=== PATIENT | female | born 1985 | race Caucasian/White ===

== ENCOUNTER 2024-03-03 15:37 | Emergency (ER) | payer OTHER ==
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
--- NOTE | 2024-03-03 16:43 | RAD REPORT ---
Procedure: Chest Pa And Lat (2 Views) HISTORY: cough COMPARISON: none FINDINGS: The lungs appear clear of acute infiltrate. No significant pleural effusion noted. The heart is normal size. IMPRESSION: No acute abnormality is displayed.
[2024-03-03] MEDS ORDERED: AZITHROMYCIN 250 MG TAB ONE (16:54)
[2024-03-03 17:11] LABS: SARS-CoV-2 Antigen CONTROL BLUE LINE VIS/BG OK; SARS-CoV-2 Antigen Rapid Res Negative (Negative)
--- NOTE | 2024-03-03 17:22 | ER ---
Nurse's Notes [facility] Name: Jimmy Leavitt Age: 38 yrs Sex: Female : 1985 Arrival Date: 03/03/2024 Time: 15:37 Bed 10 Private MD: Diagnosis: Acute pharyngitis, unspecified;Cough;Tobacco abuse counseling;Tobacco use Presentation: 03/03 15:49 Chief complaint: Patient states: sore throat and cough since yesterday. worse today kc6 with hoarseness. Coronavirus screen: At this time, the client does not indicate any symptoms associated with coronavirus-19. Ebola Screen: No symptoms or risks identified at this time. Initial Sepsis Screen: Does the patient meet any 2 criteria? No. Patient's initial sepsis screen is negative. Does the patient have a suspected source of infection? No. Patient's initial sepsis screen is negative. Risk Assessment: Do you want to hurt yourself or someone else? Patient reports no desire to harm self or others. Onset of symptoms was March 03, 2024. 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 - Infectious Disease History:: Denies. - Social history:: Smoking status: Reported history of juuling and/or vaping. Screenin:00 [facility] ED Fall Risk Assessment (Adult) History of falling in the last 3 months, aa5 including since admission No falls in past 3 months (0 pts) Confusion or Disorientation No (0 pts) Intoxicated or Sedated No (0 pts) Impaired Gait No (0 pts) Mobility Assist Device Used No (0 pt) Altered Elimination No (0 pt) Score/Fall Risk Level 0 - 2 = Low Risk Oriented to surroundings, Maintained a safe environment, Educated pt \T\ family on fall prevention, incl call for assistance when getting out of bed. Abuse screen: Denies threats or abuse. Nutritional screening: No deficits noted. Tuberculosis screening: No symptoms or risk factors identified. Assessment: 17:00 General: Appears comfortable, Behavior is calm, cooperative. Pain: Complains of pain in aa5 sore throat. Neuro: Level of Consciousness is awake, alert, obeys commands, Oriented to person, place, time, situation. Cardiovascular: Patient's skin is warm and dry. Respiratory: Reports cough Airway is patent Respiratory effort is even, unlabored, Respiratory pattern is regular, symmetrical. GI: No signs and/or symptoms were reported involving the gastrointestinal system. : No signs and/or symptoms were reported regarding the genitourinary system. EENT: Reports sore throat, hoarse voice noted. . Derm: Skin is pink, warm \T\ dry. Musculoskeletal: Range of motion: intact in all extremities. 17:55 Reassessment: Patient is alert, oriented x 3, equal unlabored respirations, skin aa5 warm/dry/pink. Vital Signs: 15:49 BP 117 / 83; Pulse 87; Resp 16 S; Temp 98.6(O); Pulse Ox 96% on R/A; Weight 61.69 kg kc6 (R); Height 5 ft. 7 in. (R); 15:49 Body Mass Index 21.30 (61.69 kg, 170.18 cm) [facility] ED Course: 15:44 Patient arrived in ED. mr 15:48 Al Majano MD is Attending Physician. [facility] 15:51 Triage completed. [facility] 15:52 Arm band placed on. kc6 16:21 Chest Pa And Lat (2 Views) XRAY In Process Unspecified. EDMS 16:39 Penny Michael, RN is Primary Nurse. aa5 16:46 SARS RAPID Sent. nh2 16:46 Flu Sent. nh2 16:46 Strep Sent. nh2 17:00 Patient has correct armband on for positive identification. Call light in reach. aa5 17:55 No provider procedures requiring assistance completed. Patient did not have IV access aa5 during this emergency room visit. Administered Medications: 17:00 Drug: AZITHromycin PO 500 mg PO once Route: PO; aa5 17:55 Follow up: Response: No adverse reaction aa5 Medication: 17:55 VIS not applicable for this client. aa5 Outcome: 17:21 Discharge ordered by . [facility] 17:55 Discharged to home ambulatory, aa5 17:55 Condition: stable 17:55 Discharge instructions given to patient, Instructed on discharge instructions, follow up and referral plans. medication usage, Demonstrated understanding of instructions, follow-up care, medications, Prescriptions given X 2, 17:56 Patient left the ED. aa5 Signatures: Dispatcher [employer] EDAl Brizuela MD MD cha Rivera, Louise, Reg Reg mr MichaelPenny RN RN aa5 Jenna Delarosa RN RN kc6 [facility]
--- NOTE | 2024-03-03 17:22 | EDPHYS ---
Physician Documentation [facility] Name: Jimmy Leavitt Age: 38 yrs Sex: Female : 1985 Arrival Date: 03/03/2024 Time: 15:37 Bed 10 Private MD: REYES Physician Al Majano HPI: 03/03 17:13 This 38 yrs old Female presents to ER via Ambulatory with complaints of Sore gordo Throat, Cough. 17:13 The patient presents with sore throat. The patient describes throat pain as constant, gordo raw. Onset: The symptoms/episode began/occurred 3 day(s) ago. Severity of symptoms: At their worst the symptoms were mild, in the emergency department the symptoms are unchanged. Modifying factors: The symptoms are alleviated by nothing, the symptoms are aggravated by nothing. Associated signs and symptoms: The patient has no apparent associated signs or symptoms. The patient has experienced similar episodes in the past, a few times. 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 - Infectious Disease History:: Denies. - Social history:: Smoking status: Reported history of juuling and/or vaping. ROS: 17:14 Constitutional: Negative for fever, chills, and weight loss, Eyes: Negative for injury, gordo pain, redness, and discharge, Neck: Negative for injury, pain, and swelling, Cardiovascular: Negative for chest pain, palpitations, and edema, Respiratory: Negative for shortness of breath, cough, wheezing, and pleuritic chest pain, Abdomen/GI: Negative for abdominal pain, nausea, vomiting, diarrhea, and constipation, Back: Negative for injury and pain, : Negative for injury, bleeding, discharge, and swelling, MS/Extremity: Negative for injury and deformity, Skin: Negative for injury, rash, and discoloration, Neuro: Negative for headache, weakness, numbness, tingling, and seizure, Psych: Negative for depression, anxiety, suicide ideation, homicidal ideation, and hallucinations, Allergy/Immunology: Negative for hives, rash, and allergies, Endocrine: Negative for neck swelling, polydipsia, polyuria, polyphagia, and marked weight changes, Hematologic/Lymphatic: Negative for swollen nodes, abnormal bleeding, and unusual bruising, 17:14 ENT: Positive for sinus congestion, sore throat, Exam: 17:14 Constitutional: This is a well developed, well nourished patient who is awake, alert, gordo and in no acute distress. Head/Face: Normocephalic, atraumatic. Eyes: Pupils equal round and reactive to light, extra-ocular motions intact. Lids and lashes normal. Conjunctiva and sclera are non-icteric and not injected. Cornea within normal limits. Periorbital areas with no swelling, redness, or edema. ENT: Nares patent. No nasal discharge, no septal abnormalities noted. Tympanic membranes are normal and external auditory canals are clear. Oropharynx with no redness, swelling, or masses, exudates, or evidence of obstruction, uvula midline. Mucous membranes moist. Neck: Trachea midline, no thyromegaly or masses palpated, and no cervical lymphadenopathy. Supple, full range of motion without nuchal rigidity, or vertebral point tenderness. No Meningismus. Chest/axilla: Normal chest wall appearance and motion. Nontender with no deformity. No lesions are appreciated. Cardiovascular: Regular rate and rhythm with a normal S1 and S2. No gallops, murmurs, or rubs. Normal PMI, no JVD. No pulse deficits. Respiratory: Lungs have equal breath sounds bilaterally, clear to auscultation and percussion. No rales, rhonchi or wheezes noted. No increased work of breathing, no retractions or nasal flaring. Abdomen/GI: Soft, non-tender, with normal bowel sounds. No distension or tympany. No guarding or rebound. No evidence of tenderness throughout. Back: No spinal tenderness. No costovertebral tenderness. Full range of motion. Skin: Warm, dry with normal turgor. Normal color with no rashes, no lesions, and no evidence of cellulitis. MS/ Extremity: Pulses equal, no cyanosis. Neurovascular intact. Full, normal range of motion. Neuro: Awake and alert, GCS 15, oriented to person, place, time, and situation. Cranial nerves II-XII grossly intact. Motor strength 5/5 in all extremities. Sensory grossly intact. Cerebellar exam normal. Normal gait. Psych: Awake, alert, with orientation to person, place and time. Behavior, mood, and affect are within normal limits. Vital Signs: 15:49 BP 117 / 83; Pulse 87; Resp 16 S; Temp 98.6(O); Pulse Ox 96% on R/A; Weight 61.69 kg kc6 (R); Height 5 ft. 7 in. (R); 15:49 Body Mass Index 21.30 (61.69 kg, 170.18 cm) kc6 MDM: 15:48 Medical Screening Exam initiated [facility] 03/03 15:49 Order name: Strep [facility] 03/03 15:49 Order name: Flu; Complete Time: 17:13 [facility] 03/03 15:49 Order name: SARS RAPID; Complete Time: 17:13 [facility] 03/03 17:01 Order name: Throat Culture [facility] 03/03 15:49 Order name: Chest Pa And Lat (2 Views) XRAY; Complete Time: 17:00 [facility] Administered Medications: 17:00 Drug: AZITHromycin PO 500 mg PO once Route: PO; aa5 17:55 Follow up: Response: No adverse reaction aa5 Disposition Summary: 03/03/24 17:21 Discharge Ordered Notes: Location: Home [facility] Problem: new [facility] Symptoms: have improved [facility] Condition: Stable gordo Diagnosis - Acute pharyngitis, unspecified gordo - Cough gordo - Tobacco abuse counseling gordo - Tobacco use gordo Followup: gordo - With: Private Physician - When: 2 - 3 days - Reason: Recheck today's complaints, Continuance of care, Re-evaluation by your physician Discharge Instructions: - Discharge Summary Sheet gordo - Pharyngitis gordo - Steps to Quit Smoking gordo - Health Risks of Smoking gordo - Sore Throat gordo - Upper Respiratory Infection, Adult gordo - Cool Mist Vaporizer gordo - Upper Respiratory Infection, Adult, [id number] gordo - Pharyngitis, [id number]-[id number] gordo - Cough, Adult, [id number] [facility] Forms: - Medication Reconciliation Form gordo - Antibiotic Education gordo - Prescription Opioid Use gordo - Patient Portal Instructions [facility] - Leadership Thank You Letter [facility] Prescriptions: - Tessalon Perles 100 mg Oral capsule - take 2 capsule ORAL route every 8 hours As needed; 30 capsule; Refills: 0, gordo Product Selection Permitted - Zithromax 500 mg Oral tablet - take 1 tablet ORAL route once daily for 4 days begin 03/04/24; 4 tablet; gordo Refills: 0, Product Selection Permitted Signatures: Dispatcher [employer] EDAl Brizuela MD MD cha Calderon, Audri, RN RN aa5 Jenna Delarosa RN RN kc6 Corrections: (The following items were deleted from the chart) 15:49 15:49 Group A Streptococcus Rapid Sc+BA.LAB.BRZ ordered. EDMS EDMS 15:49 15:49 Influenza Screen (A \T\ B)+BA.LAB.BRZ ordered. EDMS EDMS 15:49 15:49 SARS-COV-2 Antigen Rapid+I.LAB.BRZ ordered. EDMS EDMS 15:49 15:49 Chest Pa And Lat (2 Views)+RAD.RAD.BRZ ordered. EDMS EDMS
[2024-03-04 04:25] VITALS: BP 117/83; TEMP 98.6; O2SAT 96
== END 2024-03-03 17:56 | disposition home or self-care (01) ==
LOC: ER 15:37
DX: J02.9 Acute pharyngitis, unspecified (principal); R05.9 Cough, unspecified; Z71.6 Tobacco abuse counseling; Z72.0 Tobacco use; Z11.52 Encounter for screening for COVID-19
CPT/HCPCS: 36415; 71046; 87070; 87081; 87804; 87811; 99283

== ENCOUNTER 2024-03-18 15:48 | Emergency (ER) | payer OTHER ==
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
[2024-03-18 16:30] LABS: Specific Gravity 1.005 (1.005-1.030); Sqamous Epithelial <5 /HPF (None Seen); Urine Bacteria <20 /HPF (<20); Urine Bilirubin NEGATIVE (Negative); Urine Blood Negative (Negative); Urine Clarity Turbid (Clear); Urine Color Colorless (Yellow); Urine Culture Reflex Order NOT NEEDED; Urine Glucose NEGATIVE (Negative); Urine Ketones NEGATIVE (Negative); Urine Microscopic Reflex YN ORDER UMIC; Urine Nitrite NEGATIVE (Negative); Urine Protein NEGATIVE (Negative); Urine RBC <5 /HPF (None Seen); Urine Urobilinogen Normal (Normal); Urine WBC <5 /HPF (<5); Urine pH 6.5 (5.0-7.0)
[2024-03-18 16:31] LABS: Specific Gravity 1.005 (1.005-1.030)
--- NOTE | 2024-03-18 17:34 | ER ---
Nurse's Notes [facility] Name: Jimmy Leavitt Age: 38 yrs Sex: Female : 1985 Arrival Date: 03/18/2024 Time: 15:48 Bed IW2 Private MD: Diagnosis: UTI/ Urinary tract infection, site not specified Presentation: 03/18 16:00 Chief complaint: Patient states: Pt c/o right lower back pain, dysuria, frequency and tl4 urgency x 3 days. Coronavirus screen: At this time, the client does not indicate any symptoms associated with coronavirus-19. Ebola Screen: No symptoms or risks identified at this time. Initial Sepsis Screen: Does the patient meet any 2 criteria? No. Patient's initial sepsis screen is negative. Does the patient have a suspected source of infection? No. Patient's initial sepsis screen is negative. Risk Assessment: Do you want to hurt yourself or someone else? Patient reports no desire to harm self or others. Onset of symptoms was March 15, 2024. 16:00 Method Of Arrival: Ambulatory tl4 16:00 Acuity: ELVIRA 3 tl4 Triage Assessment: 16:03 General: Appears in no apparent distress. Behavior is calm, cooperative. Pain: tl4 Complains of pain in back. EENT: No signs and/or symptoms were reported regarding the EENT system. Neuro: Level of Consciousness is awake, alert, obeys commands, Oriented to person, place, time, situation. Cardiovascular: Capillary refill < 3 seconds Patient's skin is warm and dry. Respiratory: Airway is patent Respiratory effort is even, unlabored, Respiratory pattern is regular, symmetrical. GI: No signs and/or symptoms were reported involving the gastrointestinal system. : Reports burning with urination, urgency, urinary frequency. Derm: No signs and/or symptoms reported regarding the dermatologic system. Musculoskeletal: Reports pain in back. MAINTENANCE CUSTODIAN: 18:05 LMP N/A - control method, Not tl4 Historical: - Allergies: 16:02 Codeine; tl4 16:02 PENICILLINS; tl4 - PMHx: 16:02 Anemia; Arthritis; Bipolar disorder; Cyst of ovary; Depression; Anxiety; tl4 Schizo-affective disorder; - PSHx: 16:02 section; Ligation of fallopian tube; tl4 - Immunization history:: Adult Immunizations unknown. - Infectious Disease History:: Denies. - Social history:: Smoking status: Reported history of juuling and/or vaping. Screenin:04 [facility] ED Fall Risk Assessment (Adult) History of falling in the last 3 months, tl4 including since admission No falls in past 3 months (0 pts) Confusion or Disorientation No (0 pts) Intoxicated or Sedated No (0 pts) Impaired Gait No (0 pts) Mobility Assist Device Used No (0 pt) Altered Elimination No (0 pt) Score/Fall Risk Level 0 - 2 = Low Risk Oriented to surroundings, Maintained a safe environment, Educated pt \T\ family on fall prevention, incl call for assistance when getting out of bed, Assessed \T\ reinforced patient's understanding of fall precautions. Abuse screen: Denies threats or abuse. Denies injuries from another. Nutritional screening: No deficits noted. Tuberculosis screening: No symptoms or risk factors identified. Vital Signs: 16:00 BP 101 / 89; Pulse 81; Resp 16; Temp 97.9(O); Pulse Ox 98% on R/A; Weight 61.69 kg; tl4 Height 5 ft. 8 in. ; Pain 6/10; 16:00 Body Mass Index 20.68 (61.69 kg, 172.72 cm) tl4 16:00 Pain Scale: Adult tl4 ED Course: 15:51 Patient arrived in ED. ra3 15:52 Ida Persaud F[facility]-C is [facility]. kb 15:52 Rico Quispe MD is Attending Physician. kb 16:02 Triage completed. tl4 16:04 Arm band placed on right wrist. tl4 16:16 Test, Urine Sent. tl4 16:16 Urinalysis w/ reflexes Sent. tl4 16:16 Urine collected: clean catch specimen. tl4 18:05 Patient has correct armband on for positive identification. Provided Education on: ed tl4 process. 18:05 No provider procedures requiring assistance completed. Patient did not have IV access tl4 during this emergency room visit. Administered Medications: No medications were administered Medication: 18:04 VIS not applicable for this client. tl4 Outcome: 17:33 Discharge ordered by . bhupendra 18:00 Discharged to home ambulatory, with friend, tl4 18:00 Condition: stable 18:00 Discharge instructions given to patient, Instructed on discharge instructions, follow up and referral plans. medication usage, Demonstrated understanding of instructions, follow-up care, medications, Prescriptions given X 2, 18:06 Patient left the ED. tl4 Signatures: Ida Persaud FNP-C FNP-Ckb Logdahl, Toni, RN RN tl4 Yuly Ayala ra3 Corrections: (The following items were deleted from the chart) 18:06 18:00 Discharge instructions given to patient, Instructed on discharge instructions, tl4 follow up and referral plans. Demonstrated understanding of instructions, follow-up care, tl4
--- NOTE | 2024-03-18 17:34 | EDPHYS ---
Physician Documentation [facility] Name: Jimmy Leavitt Age: 38 yrs Sex: Female : 1985 Arrival Date: 03/18/2024 Time: 15:48 Bed IW2 Private MD: ED Physician Rico Quispe HPI: 03/18 17:32 This 38 yrs old Female presents to ER via Ambulatory with complaints of Urinary kb Problem, Low Back Pain. 17:32 Pt is a 38 year old female who presents for burning with urination, frequency and kb urgency that started 3 days ago. Denies fever. Reports pain to right lower back. . 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 - Infectious Disease History:: Denies. - Social history:: Smoking status: Reported history of juuling and/or vaping. ROS: 17:31 Constitutional: As per HPI kb Exam: 17:31 Constitutional: This is a well developed, well nourished patient who is awake, alert, kb and in no acute distress. Head/Face: Normocephalic, atraumatic. ENT: Moist Mucous membranes Cardiovascular: Regular rate Respiratory: Respirations even and unlabored. No increased work of breathing. Talking in full sentences Abdomen/GI: Soft, non-tender. No distention Back: No spinal tenderness. No costovertebral tenderness. Full range of motion. Skin: Warm, dry with normal turgor. Normal color. MS/ Extremity: Pulses equal, no cyanosis. Neurovascular intact. Full, normal range of motion. Neuro: Awake and alert, GCS 15, oriented to person, place, time, and situation. Vital Signs: 16:00 BP 101 / 89; Pulse 81; Resp 16; Temp 97.9(O); Pulse Ox 98% on R/A; Weight 61.69 kg; tl4 Height 5 ft. 8 in. ; Pain 6/10; 16:00 Body Mass Index 20.68 (61.69 kg, 172.72 cm) tl4 16:00 Pain Scale: Adult tl4 MDM: 15:52 Medical Screening Exam initiated kb 17:31 Differential diagnosis: UTI, pyelonephritis. Data reviewed: vital signs, nurses notes. kb Counseling: I had a detailed discussion with the patient and/or guardian regarding the historical points, exam findings, and any diagnostic results supporting the discharge/admit diagnosis, lab results, the need for outpatient follow up, a family practitioner, to return to the emergency department if symptoms worsen or persist or if there are any questions or concerns that arise at home. 03/18 16:06 Order name: Test, Urine; Complete Time: 16:31 kb 03/18 16:06 Order name: Urinalysis w/ reflexes; Complete Time: 16:31 kb Administered Medications: No medications were administered Disposition: 19:10 Co-signature as Attending Physician, Rico Quispe MD I reviewed the patient's care rt provided by the Advanced Practice Provider and agree with the diagnosis and treatment plan. Disposition Summary: 03/18/24 17:33 Discharge Ordered Notes: Location: Home kb Condition: Stable kb Diagnosis - UTI/ Urinary tract infection, site not specified kb Followup: kb - With: Emergency Department - When: As needed - Reason: Worsening of condition Followup: kb - With: Private Physician - When: 2 - 3 days - Reason: Recheck today's complaints, Continuance of care, Re-evaluation by your physician Discharge Instructions: - Discharge Summary Sheet kb - Urinary Tract Infection, Adult, [id number] kb Forms: - Medication Reconciliation Form kb - Antibiotic Education kb - Prescription Opioid Use kb - Patient Portal Instructions kb - Leadership Thank You Letter kb Prescriptions: - Pyridium 200 mg Oral Tablet - take 1 tablet ORAL route every 8 hours for 3 days; 9 tablet; Refills: 0, kb Product Selection Permitted - Macrobid 100 mg Oral Capsule - take 1 capsule ORAL route every 12 hours for 10 days; 20 capsule; Refills: 0, kb Product Selection Permitted Signatures: Dispatcher [employer] Ida Bragg, FURNACE TAPPEROmaC Rico Jaramillo MD MD rt LogdaFlako callahan RN RN tl4 Corrections: (The following items were deleted from the chart) 17:54 17:33 Dysuria kb kb
[2024-03-18 18:17] VITALS: BP 101/89; TEMP 97.9; O2SAT 98
== END 2024-03-18 18:06 | disposition home or self-care (01) ==
LOC: ER 15:48
DX: N39.0 Urinary tract infection, site not specified (principal)
CPT/HCPCS: 81001; 81025; 99283

== ENCOUNTER 2024-07-17 08:56 | Emergency (ER) | payer OTHER ==
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
[2024-07-17 09:32] LABS: Absolute Eosinophils 0.1 K/uL (0-0.5); Absolute Lymphocytes (CBC) 1.6 K/uL (0.7-4.9); Absolute Monocytes 0.4 K/uL (0.1-1.3); Absolute Neutrophil 4.1 K/uL (1.8-8.0); Basophils % 0.7 % (0-1.3); Eosinophils % 1.4 % (0-4.4); Hematocrit 37.9 % (36.0-45.0); Hemoglobin 12.7 g/dL (12.0-15.0); Lymphocytes % 25.5 % (15.3-44.8); MCH 29.3 pg (27.0-35.0); MCHC 33.4 g/dL (32.0-36.0); MCV 87.8 fL (80-100); MPV 9.4 fL (7.6-11.3); Monocytes % 6.1 % (3.3-12.3); Neutrophils % 66.3 % (41.7-73.7); Nucleated Red Blood Cells % 0.1 % (0-0); Platelets 292 thou/uL (152-406); RBC Red Blood Cell Count 4.32 M/uL (3.86-4.86); Red Cell Distribution Width 13.5 % (12.1-15.2)
[2024-07-17 09:44] LABS: Anion Gap 8.8 mEq/L (5.0-15.0); Potassium 3.8 mEq/L (3.5-5.1); Troponin High Sensitivity 4.2 pg/mL (<58.9)
--- NOTE | 2024-07-17 10:45 | RAD REPORT ---
EXAMINATION: ONE VIEW CHEST XR CLINICAL INDICATION: Female, 38 years old.,CHEST PAIN TECHNIQUE: Frontal chest projection is submitted. Examination is limited by patient positioning and t echnique. COMPARISON: 03/03/2024 FINDINGS: The lungs are well inflated and clear. No pneumothorax or sizable effusion. The heart is normal in s ize. Mediastinal contours are unremarkable. IMPRESSION: No acute intrathoracic abnormalities.
--- NOTE | 2024-07-17 10:59 | RAD REPORT ---
EXAM: CT Chest For Pe Angio TECHNIQUE: CT angiogram of the chest was performed following intravenous contrast administration, inc luding sagittal and coronal as well as maximum intensity projection reformats. One or more of the following dose reduction techniques were used: Automated exposure control, adjustment of the mA and k V according to patient size, and iterative reconstruction. Unless otherwise specified, incidental findings do not require dedicated imaging follow-up. INDICATION: CHEST PAIN COMPARISON: Chest radiograph of earlier the same day. FINDINGS: LINES/TUBES: None. PULMONARY ARTERIES: Main pulmonary arteries are normal in caliber. No filling defects within the pul monary arteries to suggest pulmonary embolus. LUNGS AND AIRWAYS: The lungs and central airways are normal without focal abnormality. PLEURA: No effusion or pneumothorax. HEART AND MEDIASTINUM: The visualized thyroid gland is normal. No mediastinal, hilar, or axillary lym phadenopathy. Heart is unremarkable. No pericardial effusion. SOFT TISSUES AND BONES: No acute osseous abnormality. No significant soft tissue finding. UPPER ABDOMEN: Unremarkable. IMPRESSION: No evidence of acute central pulmonary emboli. No suspicious intrathoracic findings..
--- NOTE | 2024-07-17 11:11 | ER ---
Nurse's Notes [facility] Name: Jimmy Leavitt Age: 38 yrs Sex: Female : 1985 Arrival Date: 07/17/2024 Time: 08:56 Bed 4 Private MD: Diagnosis: Chest pain, unspecified Presentation: 07/17 09:09 Chief complaint: Patient states: Pain under L breast that began yesterday. Coronavirus ss screen: Client denies travel out of the [place] in the last 14 days. Ebola Screen: Patient denies exposure to infectious person. Patient denies travel to an Ebola-affected area in the 21 days before illness onset. Initial Sepsis Screen: Does the patient meet any 2 criteria? No. Patient's initial sepsis screen is negative. Does the patient have a suspected source of infection? No. Patient's initial sepsis screen is negative. Risk Assessment: Do you want to hurt yourself or someone else? Patient reports no desire to harm self or others. Onset of symptoms was July 16, 2024. 09:09 Method Of Arrival: Ambulatory ss 09:09 Acuity: ELVIRA 3 ss Historical: - Allergies: 09:10 PENICILLINS; ss - PMHx: 09:10 Anemia; Anxiety; Arthritis; Bipolar disorder; Cyst of ovary; Depression; ss Schizo-affective disorder; - PSHx: 09:10 section; Ligation of fallopian tube; ss - Infectious Disease History:: Denies. - Social history:: Smoking status: Reported history of juuling and/or vaping. - Family history:: not pertinent. - Hospitalizations: : No recent hospitalization is reported. Screenin:27 [facility] ED Fall Risk Assessment (Adult) History of falling in the last 3 months, ap3 including since admission No falls in past 3 months (0 pts) Confusion or Disorientation No (0 pts) Intoxicated or Sedated No (0 pts) Impaired Gait No (0 pts) Mobility Assist Device Used No (0 pt) Altered Elimination No (0 pt) Score/Fall Risk Level 0 - 2 = Low Risk Oriented to surroundings, Maintained a safe environment, Educated pt \T\ family on fall prevention, incl call for assistance when getting out of bed, Assessed \T\ reinforced patient's understanding of fall precautions, Hourly rounding (assess needs \T\ fall precautionary measures) done, Used ambulatory aids as needed (educated on \T\ assisted with). Abuse screen: Denies threats or abuse. Nutritional screening: No deficits noted. Tuberculosis screening: No symptoms or risk factors identified. Assessment: 09:26 General: Appears in no apparent distress. Behavior is calm, cooperative, appropriate ap3 for age. Pain: Complains of pain in left breast Pain does not radiate. Pain began 1 day ago. Neuro: Level of Consciousness is awake, alert, obeys commands, Oriented to person, place, time, situation, Appropriate for age. Cardiovascular: Reports chest pain. Respiratory: Airway is patent Respiratory effort is even, unlabored, Respiratory pattern is regular, symmetrical. Vital Signs: 09:09 BP 113 / 76; Pulse 55; Resp 16; Temp 97.9(O); Pulse Ox 99% on R/A; Weight 58.97 kg; ss Height 5 ft. 7 in. ; Pain 6/10; 10:31 BP 107 / 73; Pulse 53; Resp 16; Pulse Ox 99% on R/A; ap3 11:11 BP 100 / 69; Pulse 53; Resp 15; Pulse Ox 97% on R/A; ap3 09:09 Body Mass Index 20.36 (58.97 kg, 170.18 cm) ss 09:09 Pain Scale: Adult ss ED Course: 09:00 Patient arrived in ED. al6 09:03 Froylan Wilson MD is Attending Physician. rn 09:09 Triage completed. ss 09:10 Arm band placed on right wrist. ss 09:11 Charlene Lagunas, RN is Primary Nurse. ap3 09:12 EKG done, by ED staff, reviewed by Froylan Wilson MD. ap3 09:26 Inserted saline lock: 20 gauge in right antecubital area, using aseptic technique. ap3 Blood collected. Flushed with 10 mL NS. 09:27 Patient has correct armband on for positive identification. Placed in gown. Bed in low ap3 position. Call light in reach. Side rails up X 1. Client placed on continuous cardiac and pulse oximetry monitoring. NIBP monitoring applied. compliance monitor on. Pulse ox on. NIBP on. 09:27 No provider procedures requiring assistance completed. Patient maintains SpO2 ap3 saturation greater than 95% on room air. 09:51 XRAY Chest (1 view) In Process Unspecified. EDMS 10:02 CT Chest For PE Angio In Process Unspecified. EDMS 11:21 IV discontinued, intact, bleeding controlled, No redness/swelling at site. Pressure ss dressing applied. Administered Medications: No medications were administered Outcome: 11: Discharge ordered by . rn 11: Discharged to home ambulatory, ss 11: Condition: good 11:21 Discharge instructions given to patient, Instructed on discharge instructions, follow up and referral plans. Demonstrated understanding of instructions, follow-up care, 11:22 Patient left the ED. ss Signatures: Dispatcher [employer] EDMS Froylan Wilson MD MD rn Blanchard, Shelby, RN RN Charlene Malhotra RN RN Nora Choi
--- NOTE | 2024-07-17 11:11 | EDPHYS ---
Physician Documentation [facility] Name: Jimmy Leavitt Age: 38 yrs Sex: Female : 1985 Arrival Date: 07/17/2024 Time: 08:56 Bed 4 Private MD: ED Physician Froylan Wilson HPI: 07/17 09:29 This 38 yrs old Female presents to ER via Ambulatory with complaints of Chest Pain. rn 09:29 The patient or guardian reports chest pain that is located primarily in the anterior rn chest wall, left. 09:30 Onset: yesterday. The pain does not radiate. Associated signs and symptoms: Pertinent rn positives: cough, Pertinent negatives: abdominal pain, shortness of breath, syncope, vomiting. The chest pain is described as sharp, stabbing. Duration: The patient or guardian reports multiple episodes, that wax and wane. Modifying factors: The symptoms are alleviated by nothing. the symptoms are aggravated by nothing. Severity of pain: At its worst the pain was mild in the emergency department the pain is unchanged. The patient has experienced similar episodes in the past. Patient reports left sided chest pain, is sharp and stabbing, has had it multiple times in the past and usually goes away, this 1 lasting longer now for more than a day. Reports nonproductive cough but vapes. No hemoptysis. No history of DVT or PE. No trauma. No fever or chills. No abdominal pain.. Historical: - Allergies: 09:10 PENICILLINS; ss - PMHx: 09:10 Anemia; Anxiety; Arthritis; Bipolar disorder; Cyst of ovary; Depression; ss Schizo-affective disorder; - PSHx: 09:10 section; Ligation of fallopian tube; ss - Infectious Disease History:: Denies. - Social history:: Smoking status: Reported history of juuling and/or vaping. - Family history:: not pertinent. - Hospitalizations: : No recent hospitalization is reported. ROS: 09:30 Constitutional: Negative for fever, chills, and weight loss, Cardiovascular: Positive rn for chest pain on left side Respiratory: Positive for cough, negative for shortness of breath Abdomen/GI: Negative for abdominal pain, nausea, vomiting, diarrhea, and constipation, Back: Negative for injury and pain, MS/Extremity: Negative for injury and deformity, Skin: Negative for injury, rash, and discoloration, Neuro: Negative for headache, weakness, numbness, tingling, and seizure, Exam: 09:30 Constitutional: This is a well developed, well nourished patient who is awake, alert, rn and in no acute distress. Chest/axilla: Normal chest wall appearance and motion. No crepitus or ecchymosis Cardiovascular: Bradycardic, regular. No pulse deficits. Respiratory: Speaking full sentences, unlabored. No increased work of breathing, no retractions or nasal flaring. Abdomen/GI: Soft, non-tender MS/ Extremity: Pulses equal, no cyanosis. Neuro: Awake and alert, GCS 15 11:36 ECG was reviewed by the Attending Physician. rn Vital Signs: 09:09 BP 113 / 76; Pulse 55; Resp 16; Temp 97.9(O); Pulse Ox 99% on R/A; Weight 58.97 kg; ss Height 5 ft. 7 in. ; Pain 6/10; 10:31 BP 107 / 73; Pulse 53; Resp 16; Pulse Ox 99% on R/A; ap3 11:11 BP 100 / 69; Pulse 53; Resp 15; Pulse Ox 97% on R/A; ap3 09:09 Body Mass Index 20.36 (58.97 kg, 170.18 cm) ss 09:09 Pain Scale: Adult ss MDM: 09:03 Medical Screening Exam initiated rn 09:56 ED course: Notified by lab that D-dimer not available today, no reagent. Will order CT rn PE protocol. 11:09 Differential diagnosis: acute myocardial infarction, acute pericarditis, anxiety, chest rn wall pain, costochondritis, esophagitis, gastritis, gastroesophageal reflux disease (GERD), pleurisy, pneumonia, pneumothorax, pulmonary embolus. HEART Score: History: Slightly Suspicious (0), ECG: Normal (0), Age: < or = 45 years (0), Risk Factors: No Risk Factors Known (0), Troponin: < or = 1 x Normal Limit (0), Total Score = 0. Data reviewed: vital signs, nurses notes, lab test result(s), EKG, radiologic studies, CT scan, plain films, and as a result, I will discharge patient. Counseling: I had a detailed discussion with the patient and/or guardian regarding the historical points, exam findings, and any diagnostic results supporting the discharge/admit diagnosis, lab results, radiology results, the need for outpatient follow up, to return to the emergency department if symptoms worsen or persist or if there are any questions or concerns that arise at home. Special discussion: Based on the patient's history, exam, and Dx evaluation, there is no indication for emergent intervention or inpatient Tx. It is understood by the patient/guardian that if the Sx's persist or worsen they need to return immediately for re-evaluation. I discussed with the patient/guardian in detail that at this point there is no indication for admission to the hospital. It is understood, however, that if the symptoms persist or worsen the patient needs to return immediately for re-evaluation. ED course: No acute findings and workup, specifically negative troponin and no acute findings on ECG. CT chest PE protocol negative as well. Possibly chest pain secondary to vaping. Recommend cessation of vaping and PCP follow-up. Return precautions given and understood.. 07/17 09:11 Order name: Basic Metabolic Panel; Complete Time: : rn 07/17 09:11 Order name: CBC with Diff; Complete Time: :43 rn 07/17 09:11 Order name: NT PRO-BNP; Complete Time: rn 07/17 09:11 Order name: Troponin HS; Complete Time: rn 07/17 09:11 Order name: XRAY Chest (1 view); Complete Time: 11: rn 07/17 09:44 Order name: CT Chest For PE Angio; Complete Time: 11: rn 07/17 09:11 Order name: EKG; Complete Time: : rn 07/17 09:11 Order name: Cardiac monitoring; Complete Time: : rn 07/17 09:11 Order name: EKG - Nurse/Tech; Complete Time: : rn 07/17 09:11 Order name: IV Saline Lock; Complete Time: : rn 07/17 09:11 Order name: Labs collected and sent; Complete Time: : rn 07/17 09:11 Order name: O2 Per Protocol; Complete Time: : rn 07/17 09:11 Order name: O2 Sat Monitoring; Complete Time: 09:12 rn EC:36 Rate is 56 beats/min. Rhythm is regular. QRS Henriette is Normal. QRS interval is normal. QT rn interval is normal. No Q waves. T waves are Normal. No ST changes noted. Clinical impression: Sinus bradycardia. Interpreted by me. Reviewed by me. Administered Medications: No medications were administered Disposition Summary: 07/17/24 11:10 Discharge Ordered Notes: Location: Home rn Problem: new rn Symptoms: have improved rn Condition: Stable rn Diagnosis - Chest pain, unspecified rn Followup: rn - With: Private Physician - When: As needed - Reason: Recheck today's complaints, Re-evaluation by your physician Discharge Instructions: - Discharge Summary Sheet rn - Nonspecific Chest Pain, Adult rn - Pain Without a Known Cause rn Forms: - Medication Reconciliation Form rn - Antibiotic manager intern - Prescription Opioid Use rn - Patient Portal Instructions rn - Leadership Thank You Letter rn Signatures: Dispatcher [employer] EDFroylan Solis MD MD rn Blanchard, Shelby, RN RN ss Corrections: (The following items were deleted from the chart) 09:11 09:11 Chest Single View+RAD.RAD.BRZ ordered. EDNJ EDMS 09:48 09:11 D-DIMER+COAG.LAB.BRZ ordered. EDNJ EDMS
[2024-07-17 11:26] VITALS: TEMP 97.9
[2024-07-17 11:28] VITALS: BP 100/69; O2SAT 97
--- NOTE | 2024-07-18 11:02 | EKG ---
Test Date: 2024-07-17 Test Time: 08:09:20 Supervisor [place]: ALP MEASUREMENT RESULTS: Intervals: Rate: 56 NJ: 104 QRSD: 78 QT: 434 QTc: 418 [place]: P: 69 NJ: 104 QRS: 84 T: 70 INTERPRETIVE STATEMENTS: Sinus bradycardia with short [place] Otherwise normal ECG No previous ECG available for comparison Electronically Signed On 07-18-24 10:57:47 CDT by Micheal Holder
== END 2024-07-17 11:22 | disposition home or self-care (01) ==
LOC: ER 08:56
DX: R07.9 Chest pain, unspecified (principal)
CPT/HCPCS: 93005; 85025; 80048; 36415; 84484; 83880; 71275; 71045; 99284; Q9967